=== PATIENT | male | born 1985 | race Caucasian/White ===

== ENCOUNTER 2021-03-13 18:23 | Emergency (ER) | payer MEDICAID ==
[~2021-03-13] VITALS: Ht 185.4 cm; Wt 79.4 kg
[2021-03-13 19:00] VITALS: BP 116/73
[2021-03-13] MEDS ORDERED: KETOROLAC TROMETH 60MG/2ML VIAL IM ONE (21:15)
[2021-03-13 21:59] LABS: Urine Bacteria FEW /hpf (None Seen); Urine Blood Negative /uL (Negative); Urine Mucus FEW (None Seen); Urine Specific Gravity 1.016 (1.001-1.035); Urine WBC 1 /hpf (0 - 3)
== END 2021-03-13 22:19 | disposition home or self-care (01) ==
LOC: ER 18:23
DX: S33.5XXA Sprain of ligaments of lumbar spine, initial encounter (principal); F17.210 Nicotine dependence, cigarettes, uncomplicated; F12.10 Cannabis abuse, uncomplicated; M79.18 Myalgia, other site; X50.0XXA Overexertion from strenuous movement or load, initial encounter; Y93.89 Activity, other specified; Y92.89 Other specified places as the place of occurrence of the external cause; Y99.8 Other external cause status
CPT/HCPCS: 72100; 81001; 96372; 99284; J1885

== ENCOUNTER 2022-04-04 12:09 | Emergency (ER) | payer MEDICAID ==
[~2022-04-04] VITALS: Ht 185.4 cm; Wt 81.6 kg
[2022-04-04 12:11] VITALS: BP 105/68
== END 2022-04-04 16:45 | disposition left against medical advice (07) ==
LOC: ER 12:09
DX: S61.217A Laceration without foreign body of left little finger without damage to nail, initial encounter (principal); Z53.21 Procedure and treatment not carried out due to patient leaving prior to being seen by health care provider; W26.8XXA Contact with other sharp object(s), not elsewhere classified, initial encounter; Y93.89 Activity, other specified; Y92.89 Other specified places as the place of occurrence of the external cause; Y99.8 Other external cause status